=== PATIENT | female | born 1975 | race Caucasian/White ===

== ENCOUNTER 2016-12-09 21:05 | Emergency (ER) | payer BC, OTHER ==
[~2016-12-09] VITALS: Ht 165.1 cm; Wt 56.7 kg
[2016-12-09] MEDS ORDERED: LIDOCAINE HCL 1% 20 ML VIAL IJ ONE (21:30)
[2016-12-09] MEDS ORDERED: MORPHINE SULFATE 4 MG/1 ML DISP.SYRIN IV ONE (21:30)
[2016-12-09] MEDS ORDERED: TDAP DIPH,PERTUSS,TET VAC/PF 0.5 ML DISP.SYRIN IM ONE ×2 (21:30→21:44)
[2016-12-09] MEDS ORDERED: ONDANSETRON IV *ER 4 MG/2 ML VIAL IV ONE (21:30)
[2016-12-09] MEDS ORDERED: CEFAZOLIN 1 G in IV DEXTROSE 5% 50 ML IV ONE (21:30)
[2016-12-09] MEDS ORDERED: ONDANSETRON 4 MG/2 ML VIAL ONE (21:44)
[2016-12-09] MEDS ORDERED: MORPHINE SULFATE 4 MG/1 ML DISP.SYRIN ONE (21:44)
[2016-12-09] MEDS ORDERED: CEFAZOLIN 1 G VIAL ONE (21:44)
[2016-12-09] MEDS ORDERED: HYDROMORPHONE 1 MG/1 ML DISP.SYRIN IV ONE (21:45)
[2016-12-09] MEDS ORDERED: HYDROMORPHONE 1 MG/1 ML DISP.SYRIN ONE (21:54)
[2016-12-09] MEDS ORDERED: HYDROCODONE/APAP 10-325 MG TABLET PO ONE (23:00)
--- NOTE | 2016-12-09 23:08 | NUR ---
Patient discharged to home in stable conditon. Written and verbal after care instructions given. Patient verbalizes understanding of instructions. Peripheral IV removed. Ambulated from ER with stable gait. All belongings with patient. Patient will be driven home by family member in private vehicle. patient is aware not to drive or operate heavy machinery due to recent narcotic intake.
[2016-12-09 23:11] VITALS: BP 131/70
[2016-12-09] MEDS ORDERED: HYDROCODONE/APAP 10-325 MG TABLET ONE (23:16)
== END 2016-12-09 23:11 | disposition home or self-care (01) ==
LOC: ER 21:05
DX: S61.511A Laceration without foreign body of right wrist, initial encounter (principal); W20.8XXA Other cause of strike by thrown, projected or falling object, initial encounter; Y93.89 Activity, other specified; Y92.89 Other specified places as the place of occurrence of the external cause; Y99.9 Unspecified external cause status
CPT/HCPCS: 12001; 73110; 90471; 90715; 96365; 96375; 99284; A4217; A4663; J0690; J1170; J2270; J2405; J3490; J7060